=== PATIENT | male | born 1955 | race Caucasian/White ===

== ENCOUNTER 2023-11-05 08:03 | Outpatient (REF) | payer MEDICARE, OTHER, SELFPAY | END 2023-11-05 08:04 | disposition home or self-care (01) | LOC: HO.BBR 08:03 | PROVIDERS: Visit Provider Internal Medicine | DX: Z13.89 Encounter for screening for other disorder (principal) ==

== ENCOUNTER 2023-12-13 08:10 | Outpatient (REF) | payer MEDICARE, OTHER, SELFPAY | END 2023-12-13 08:11 | disposition home or self-care (01) | LOC: HO.BBR 08:10 | PROVIDERS: Visit Provider Internal Medicine | DX: Z13.89 Encounter for screening for other disorder (principal) ==

== ENCOUNTER 2023-12-24 11:08 | Outpatient (REF) | payer MEDICARE, OTHER, SELFPAY | END 2023-12-24 11:09 | disposition home or self-care (01) | LOC: HO.BBR 11:08 | PROVIDERS: Visit Provider Internal Medicine | DX: Z13.89 Encounter for screening for other disorder (principal) ==

== ENCOUNTER 2024-01-28 08:52 | Outpatient (REF) | payer MEDICARE, OTHER, SELFPAY | END 2024-01-28 08:53 | disposition home or self-care (01) | LOC: HO.BBR 08:52 | PROVIDERS: Visit Provider Internal Medicine | DX: Z13.89 Encounter for screening for other disorder (principal) ==

== ENCOUNTER 2024-03-03 08:00 | Outpatient (REF) | payer MEDICARE, OTHER, SELFPAY ==
--- OUTSIDE RECORDS SUMMARY | 2024-03-03 08:02 | XMS_ITS ---
Author Name [facility] Address [address] [place] [address] Care Team Providers Care Vp Project Name Role Phone SHAMIR MARTE Primary Care Provider Micheline espinal Selected Encounter This section includes the information on record at [place] for the Encounter. Date/Time Encounter Type Encounter Description Reason Pro vider Source Dec 24, 2023 12:00 AM Outpatient Encounter EVENT (HISTORICAL) IHE Encounter Template Text not used by [place] Plan of Treatment: Future Appointments (+ 6 months) and Future Tests (+/- 45 days) The Plan of Treatment section includes future care activities for the patient from all [place] treatmentfacilities. This section includes future appointments and future orders which are active, pending or scheduled. Active, Pending, and Scheduled Orders This section includes a listing of several types of active, pending, and scheduled orders, including clinic medications orders, diagnostic test orders, procedure orders and consult orders; where the start date of the order is 45 days before the date of the Encounter or 45 days after the date of theEncounter. The data comes from all [place] treatment facilities. Test Date/Time Test Type Test Details Facility Name Jan 11, 2024 12:00 AM Laboratory - Chemi stry Order OCCULT BLOOD FIT X1 SCREEN (MFP ONLY) [facility] Encounter Notes: All associated encounter notes This section contains the clinical notes associated to the Encounter. Date/Time Encounter Note(s) Provider Source Dec 24, 2023 12:00 AM NONVA DIAGNOSTIC Guadalupe LUNA REPORT: LOCAL TITLE: NON-VA DIAGNOSTICS STANDARD TITLE: NONVA DIAGNOSTIC STUDY REPORT DATE OF NOTE: DEC 24, 2023 ENTRY DATE: JAN 17, 2024@10:23:34 AUTHOR: KAUR ANDRES EXP COSIGNER: URGENCY: STATUS: COMPLETED VistA Imaging - Scanned Document SCANNED DOCUMENT SIGNATURE NOT REQUIRED Electronically Filed: 01/17/2024 by: KAUR CALLAHAN [facility]L [facility]
--- OUTSIDE RECORDS SUMMARY | 2024-03-03 08:02 | XMS_ITS ---
Author Name [facility] Organization Unknown History of Medication Use Medication Directions Dispensed Refills Start Date End Date Stat aspirin EC 81 MG tablet Take 1 tablet (81 mg total) by mouth daily. 10/06/2023 aborted omeprazole (PriLOSEC) 20 MG capsule Take 1 capsule (20 mg total) by mouth daily. as directed 10/06/2023 active atorvastatin (LIPITOR) tablet 20 mg Take 1 tablet (20 mg total) by mouth daily. 10/06/2023 active hydroCHLOROthiazide (HYDRODIURIL) tablet 12.5 mg TAKE ONE TABLET BY MOUTH EVERY DAY 10/06/2023 active losartan (COZAAR) tablet 50 mg TAKE ONE TABLET BY MOUTH EVERY DAY 10/06/2023 aborted losartan (COZAAR) tablet 50 mg Take 1 tablet (50 mg total) by mouth daily. 10/06/2023 active Problems Problem Status Onset Date Problem Type Date of Resolution Source Essential hypertension active 2017-05-25 ProblemAct [facility] Bilateral leg edema active 2017-06-30 ProblemAct [facility] VOGEL (dyspnea on exertion) active 2017-05-25 ProblemAct [facility] Elevated coronary artery calcium score active EncounterDiagnosisAct [facility]THNEM[facility] DE (obstructive sleep apnea) active 2017-05-25 ProblemAct [facility] Snoring active 2017-05-25 ProblemAct [facility] Moderate mixed hyperlipidemia not requiring statin therapy active EncounterDiagnosisAct CTTHNE MG Class 2 obesity due to excess calories without serious comorbidity with body mass index (BMI) of 37.0 to 37.9 in adult active 2017-06-30 ProblemAct [facility]
--- OUTSIDE RECORDS SUMMARY | 2024-03-03 08:02 | XMS_ITS | Continuity of Care Document ---
Author Name [facility] Organization [facility] Care Team Providers Care Service Manager Name Role Phone [facility] Unavailable Unavailable Problems Combined list of problems from Department of [facility] and Veterans Affairs facilities. It does not include entries that were removed or entered in error. Problem Status Onset Date Problem Type Date of Resolution Comments Source Anxiety Active Condition [place] Atherosclerosis of aorta Active Condition [place] Colonoscopy Screening Active Condition [place] Depression Active Condition [place] Gastroesophageal reflux disease [facility] Active Condition [facility] IELD Hypertension Active Condition [facility] Insomnia Active Condition [place] Obesity Active Condition [place] Peyronie Disease Active Condition [place] Tobacco dependence, continuous Active Condition [place] Medications Combined list of outpatient medications from [facility] and [facility] facilities.Medications provided include 1) outpatient medications from the last 15 months, and 2) patient-reported medications. Medication Details Route Status Patient Instructions Prescription Expires Prescription Number Last Dispense Date Ordering Provider Order Date Order Qty Source AMOXICILLIN TRIHYDRATE 500MG CAP TAKE 4 CAPSULES BY MOUTH ONE TIME NEEDED ORAL ACTIVE JULIET MARTE SA 2022 IELD ASPIRIN 81MG TAB,EC TAKE ONE TABLET BY MOUTH ONCE DAILY ORAL ACTIVE JULIET MARTE SA 2022 IELD CLOPIDOGREL BISULFATE 75MG TAB TAKE ONE TABLET BY MOUTH ONCE DAILY ORAL ACTIVE JULIET MARTE SA 2022 IELD HYDROCHLORO THIAZIDE 12.5MG/LOSA RTAN POTASSIUM 50MG TAB TAKE ONE TABLET BY MOUTH ONCE DAILY ORAL ACTIVE JULIET MARTE SA 2022 IELD LORAZEPAM 1MG TAB TAKE ONE TABLET BY MOUTH AT BEDTIME NEEDED ORAL ACTIVE JULIET MARTE SA 2022 IELD OMEPRAZOLE 20MG CAP,EC TAKE 2 CAPSULES BY MOUTH EVERY MORNING 30 MINUTES BEFORE BREAKFAS T ORAL ACTIVE JULIET MARTE SA 2022 IELD Immunizations Combined list of available immunizations from the Department of Defense and Veterans Affairs facilities. Immunization Series Date Given Administered By Site Reaction Lot Number CVX Code Drug Metal Bonding Helper Status Comments Source INFLUENZA, UNSPECIFIED FORMULATION 2021 88 complet ed [place] [facility] [place] [facility] PNEUMOCOCCAL CONJUGATE PCV 13 2021 133 complet ed [place] [facility] [place] [facility] PNEUMOCOCCAL POLYSACCHARID E PPV23 2016 33 complet ed [place] [facility] [place] [facility] ZOSTER LIVE 2016 121 complet ed [place] [facility] [place] [facility] TDAP 2015 115 complet ed [facility] [place] [facility] Encounters Combined list of: 1) Encounters from Department of Veterans Affairs facilities going back up to thelast 18 months. 2) Encounters from the Department of Defense facilities going back up to 280 months. Location Location Details Encounter Type Encounter Number Reason For Visit Attending Provider ADM Date DC Date Status Disposition Source [facility] [place] [facility] Outpatient Encounter [id number] 10/15 [place] [facility] [facility] [facility] [place] [facility] Outpatient Encounter [id number] 12/23 [facility] [place] [facility] [facility] Social History Combined list of available smoking, tobacco, and other social history from Department of Defense and Veterans Affairs facilities. Social History Type Response Date Comment Sourc e Tobacco smoking status NHIS VA-TOBACCO USER EVERY DAY 06/0 11/2022 [place] History of tobacco use [place]-TOBACCO DOESNT USE WI 30 MIN WAKEUP 08/28/2022 [place]
== END 2024-03-03 08:01 | disposition home or self-care (01) ==
LOC: HO.BBR 08:00
PROVIDERS: Visit Provider Internal Medicine
DX: Z13.89 Encounter for screening for other disorder (principal)

== ENCOUNTER 2024-04-28 08:11 | Outpatient (REF) | payer MEDICARE, OTHER, SELFPAY ==
--- OUTSIDE RECORDS SUMMARY | 2024-04-28 08:21 | XMS_ITS | Clinical Summary ---
Author Organization [facility] Address [address] [place] [address] Phone Care Team Providers Care Launch Commander [employer] Name Role Phone Braulio Bailey MD Primary Care Provider [phone] Allergies No known active allergies Medications Medication Sig Dispensed Refills Start Date End Date Status atorvastatin (LIPITOR) 20 mg tablet Take 1 tablet (20 mg total) by mouth daily. 10/04/2023 Active hydroCHLOROthiazide 12.5 mg tablet TAKE ONE TABLET BY MOUTH EVERY DAY 10/19/2023 Active losartan (COZAAR) 50 mg tablet Take 1 tablet (50 mg total) by mouth daily. 10/04/2023 Active omeprazole (PriLOSEC) [address] capsule Take 1 capsule (20 mg total) by mouth daily. as directed 08/26/2020 Active Active Problems Problem Noted Date Diagnosed Date Hereditary hemochromatosis 11/03/2023 Bilateral leg edema 06/30/2017 Class 2 obesity due to exces s calories without serious comorbidity with body mass index (BMI) of 37.0 to 37.9 in adult 06/30/2017 VOGEL (dyspnea on exertion) 05/25/2017 Essential hypertension 05/25/2017 DE (obstructive sleep apnea) 05/25/2017 Snoring 05/25/2017 Encounters Date Type Department Care Team Description 03/06/2024 9:00 AM EST Office Visit [facility] Hematology Oncology [address] [place] [address] Chloe Weaver PA Hereditary hemochromatosis (CMS/HCC) (Primary Dx); Former smoker from Last 3 Months Surgical History Surgery Date Site/Laterality Comments TOTAL KNEE ARTHROPLASTY 2008, 2010 Bilateral PROCEDURE:REPLACEMENT TOTAL KNEE Medical History Medical History Date Comments Hypertension DX:Hypertension Hyperlipidemia DX:Hyperlipidemi a Social History Tobacco Use Types Packs/Day Years Used Date Smoking Tobacco: Former Smokeless Tobacco: Never Tobacco Cessation:Counseling Given: Not Answered Sex and Gender Information Value Date Recorded Sex Assigned at Not on file Gender Identity Not on file Sexual Orientation Not on file Job Start Date Occupation Industry Not on file Not on file Not on file Obstetrics History Last Filed Vital Signs Vital Sign Reading Time Taken Comments Blood Pressure 131/70 03/06/2024 9:12 AM EST Pulse 67 03/06/2024 9:12 AM EST Temperature 37.1 ??C (98.7 ??F) 03/06/2024 9:12 AM ES T Respiratory Rate - - Oxygen Saturation 97% 03/06/2024 9:12 AM EST Inhaled Oxygen Concentration - - Weight 108 kg (237 lb) 03/06/2024 9:12 AM EST Height 179.1 cm (5' 10.5 ) 10/04/2023 8:59 AM ED T Body Mass Index 33.53 10/04/2023 8:59 AM EDT Plan of Treatment Upcoming Encounters Date Type Department Care Team (Late st Contact Info) Description 08/28/2024 9:15 AM EDT Office Visit [facility] Hematology Oncology [address] [place] [phone] Yarely-Efren Wallace MD [address] [place] [phone] 10/04/2024 9:00 AM EDT Office Visit [facility] [address] [place] [address] [address] [place] [address] Terry Walton MD [address] [address] Health Maintenance Due Date Last Done Comments Hepatitis A Vaccines (1 of 2 - Risk 2-dose series) 1975 Zoster Vaccines (2 of 3) 08/03/2016 06/08/2016 Abdominal Aortic Aneurysm (AAA) Screen 02/26/2022 Cholesterol Screening (Lipid Panel) 02/26/2022 Colorectal Cancer Screening: Colonoscopy 02/26/2022 Depression Screening 02/26/2022 Falls Risk Assessment 02/26/2022 Hepatitis C Screening 02/26/2022 Social Influencers of Health Screening 02/26/2022 Hypertension/CHF/CAD Annual BMP Blood Test 02/28/2022 Medicare Annual Wellness Visit 07/10/2023 07/09/2022 DTaP,Tdap,and Td Vaccines (3 - Td or Tdap) 09/21/2032 09/21/2022, 03/22/2015 Pneumococcal Vaccine: 65+ Years Completed 08/27/2022, 07/08/2021, 12/09/2016, Additional history exists RSV Immunization Patients 60+ Years Old Completed 12/03/2022 COVID-19 Vaccine Completed 12/12/2023, , 06/21/2020 Influenza Vaccine Completed 12/12/2023, , 01/12/2022, Additional history exists HIB Vaccines Aged Out No longer eligi ble based on patient's age to complete this topic HPV Vaccines Aged Out No longer eligi ble based on patient's age to complete this topic Hepatitis B Vaccines Aged Out No long er eligible based on patient's age to complete this topic IPV Vaccines Aged Out No longer eligi ble based on patient's age to complete this topic MMR Vaccines Aged Out No longer eligi ble based on patient's age to complete this topic Meningococcal ACWY Vaccine Aged Out N o longer eligible based on patient's age to complete this topic RSV Immunization Patients Under 20 months Aged Out No longer eligible based on patient's age to complete this topic Varicella Vaccines Aged Out No longer eligible based on patient's age to complete this topic Care Teams Launch Commander [employer] Relationship Specialty Start Date End Date Braulio Bailey MD [address] [place], [place] PCP - General Knitting Machine Operator Helper 05/25/17
--- OUTSIDE RECORDS SUMMARY | 2024-04-28 08:21 | XMS_ITS | Continuity of Care Document ---
Author Name [facility] Organization [facility] Care Team Providers Care Rn Neurology Name Role Phone [facility] Unavailable Unavailable Problems Combined list of problems from Department of [facility] and Veterans Affairs facilities. It does not include entries that were removed or entered in error. Problem Status Onset Date Problem Type Date of Resolution Comments Source Anxiety Active Condition [place] Atherosclerosis of aorta Active Condition [place] Colonoscopy Screening Active Condition [place] Depression Active Condition [place] Gastroesophageal reflux disease [facility] Hyperlipidemia Active Condition [facility] IELD Hypertension Active Condition [place] [facility] Insomnia Active Condition [place] Obesity Active Condition [place] Peyronie Disease Active Condition [place] Tobacco dependence, continuous Active Condition [facility] Medications Combined list of outpatient medications from [facility] and [facility] facilities.Medications provided include 1) outpatient medications from [...] Site Reaction Lot Number CVX Code Drug Family Support Coordinator Status Comments Source INFLUENZA, UNSPECIFIED FORMULATION 2021 88 complet ed [place] [facility] [place] [facility] PNEUMOCOCCAL CONJUGATE PCV 13 2021 133 complet ed [place] [facility] [place] [facility] PNEUMOCOCCAL POLYSACCHARID E PPV23 2016 33 complet ed [facility] [place] [facility] ZOSTER LIVE 2016 121 complet ed [facility] [place] [facility] TDAP 2015 115 complet [facility] [place] [facility] [facility] Encounters Combined list of: 1) Encounters from Department of Veterans Affairs facilities going backup to the last 18 months, not all VA inpatient encounters are included; 2) Encounters from the Department of Defense facilities going backup to 280 months. Location Location Details Encounter Type Encounter Number Reason For Visit Attending Provider ADM Date DC Date Status Disposition [facility] [place] [facility] Outpatient Encounter [id number] 10/15 [place] [facility] [place] [facility] [facility] Encounter [id number] [facility] Social History Combined list of available smoking, tobacco, and other social history from Department of Defense and Veterans Affairs facilities. Social History Type Response Date Comment Sourc e Tobacco smoking status NHIS VA-TOBACCO USER EVERY DAY 06/0 11/2022 [place] History of tobacco use [place]-TOBACCO DOESNT USE WI 30 MIN WAKEUP 08/28/2022 [place]
--- OUTSIDE RECORDS SUMMARY | 2024-04-28 08:22 | XMS_ITS | Clinical Summary ---
Author Organization [facility] Address [address] [place] [address] Care Team Providers Care Featheredger And Reducer Machine Name Role Phone Braulio Bailey MD Primary Care Provider [phone] Allergies No known active allergies Medications Medication Sig Dispensed Refills Start Date End Date Status omeprazole (PriLOSEC) 20 MG capsule Take 1 capsule (20 mg total) by mouth daily. as directed 0 08/26/2020 Active losartan (COZAAR) tablet 50 mgIndications:Primary hypertension,Moderate mixed hyperlipidemia not requiring statin therapy,Elevated coronary artery calcium score Take 1 tablet (50 mg total) by mouth daily. 90 tablet 3 10/04/2023 Active atorvastatin (LIPITOR) tablet 20 mgIndications:Primary hypertension,Moderate mixed hyperlipidemia not requiring statin therapy,Elevated coronary artery calcium score Take 1 tablet (20 mg total) by mouth daily. 90 tablet 3 10/04/2023 Active LORazepam (ATIVAN) 1 MG tablet Take 1 tablet (1 mg total) by mouth every night at bedtime as needed. 0 Active aspirin 81 MG chewable tablet Chew 1 tablet (81 mg total) by mouth daily. 0 Active hydroCHLOROthiazide (HYDRODIURIL) tablet 12.5 mg TAKE ONE TABLET BY MOUTH EVERY DAY 90 tablet 1 10/19/2023 Active Active Problems Problem Noted Date Diagnosed Date Hereditary hemochromatosis 11/03/2023 Bilateral leg edema 06/30/2017 Class 2 obesity due to exces s calories without serious comorbidity with body mass index (BMI) of 37.0 to 37.9 in adult 06/30/2017 Essential hypertension 05/25/2017 VOGEL (dyspnea on exertion) 05/25/2017 DE (obstructive sleep apnea) 05/25/2017 Snoring 05/25/2017 Social History Tobacco Use Types Packs/Day Years Used Date Smoking Tobacco: Former Cigarettes Passive Smoke Exposure: Past Smokeless Tobacco: Never Sex and Gender Information Value Date Recorded Sex Assigned at Male 09/09/2023 5:07 PM EDT Gender Identity Not on file Sexual Orientation Not on file Job Start Date Occupation Industry Not on file Not on file Not on file Last Filed Vital Signs Vital Sign Reading Time Taken Comments Blood Pressure 140/69 11/03/2023 8:13 AM EDT Pulse 69 11/03/2023 8:13 AM EDT Temperature 37.2 ??C (98.9 ??F) 11/03/2023 8:13 AM ED T Respiratory Rate - - Oxygen Saturation 96% 11/03/2023 8:13 AM EDT Inhaled Oxygen Concentration - - Weight 117 kg (258 lb) 11/03/2023 8:13 AM EDT Height 179.1 cm (5' 10.5 ) 10/04/2023 8:59 AM ED T Body Mass Index 36.5 10/04/2023 8:59 AM EDT Plan of Treatment Health Maintenance Due Date Last Done Comments Hepatitis C Screening 1956 COVID-19 Vaccine (#1) 1956 Depression Screening 1968 BMI Counseling 1974 Preventative Health Evaluation 1974 Tobacco Cessation Counseling 1974 Colon Cancer Screening (Colonoscopy) 2001 Shingrix-Zoster Vaccine (1 o f 2) 2006 Abdominal Aortic Aneurysm (AAA) Screening 2021 Fall Risk Assessment 2021 Influenza Vaccine (#1) 2023 05/03/2015 DTap / Tdap / Td (2 - Td or Tdap) 03/22/2025 03/22/2015 Pneumococcal Vaccine (3 of 3 - PPSV23 or PCV20) 07/08/2026 07/08/2021, 12/09/2016, 05/03/2015 RSV Adult > 60+ Yrs or (1 - 1-dose 75+ series) 2031 Hepatitis B Vaccines Aged Out No long er eligible based on patient's age to complete this topic RSV Ped < 20 months Aged Out No longe r eligible based on patient's age to complete this topic Care Teams Featheredger And Reducer Machine Relationship Specialty Start Date End Date Braulio Bailey MD [facility] IFTIKHAR JEFFRIES [address] [address] PCP - General Head Girls Golf Coach 05/25/17
== END 2024-04-28 08:12 | disposition home or self-care (01) ==
LOC: HO.BBR 08:11
PROVIDERS: Visit Provider Internal Medicine
DX: Z13.89 Encounter for screening for other disorder (principal)

== ENCOUNTER 2024-06-30 10:40 | Outpatient (REF) | payer MEDICARE, OTHER, SELFPAY ==
--- OUTSIDE RECORDS SUMMARY | 2024-06-30 11:34 | XMS_ITS | Continuity of Care Document ---
Author Name [facility] Organization [facility] Care Team Providers Care Ticketer Name Role Phone [facility] Unavailable Unavailable Problems Combined list of problems from Department of [facility] and Veterans Affairs facilities. It does not include entries that were removed or entered in error. Problem Status Onset Date Problem Type Date of Resolution Comments Source Anxiety Active Condition [place] Atherosclerosis of aorta Active Condition [place] Colonoscopy Screening Active Condition [place] Depression Active Condition [place] Gastroesophageal reflux disease [facility]lipidemia Active Condition [facility] IELD Hypertension Active Condition [place] [facility] Insomnia Active Condition [place] Obesity Active Condition [place] Peyronie Disease Active Condition [place] Tobacco dependence, continuous Active Condition [place] Medications Combined list of outpatient medications from [facility] and [facility] facilities.Medications provided [...] Site Reaction Lot Number CVX Code Drug Termite Exterminator Helper Status Comments Source INFLUENZA, UNSPECIFIED FORMULATION 2021 88 complet ed HISTORICA L INFORMATI ON - SOURCE UNSPECIFI ED, [place] [facility] [place] [facility] PNEUMOCOCCAL CONJUGATE PCV 13 2021 133 complet ed HISTORICA L INFORMATI ON - SOURCE UNSPECIFI ED, [place] [facility] [place] [facility] PNEUMOCOCCAL POLYSACCHARID E PPV23 2016 33 complet ed HISTORICA L INFORMATI ON - SOURCE UNSPECIFI ED, [place] [facility] [place] [facility] ZOSTER LIVE 2016 121 complet ed HISTORICA L INFORMATI ON - SOURCE UNSPECIFI ED, [place] [facility] [facility] TDAP 2015 115 complet ed HISTORICA L INFORMATI ON - SOURCE UNSPECIFI ED, [place] [facility] [facility] Encounters Combined list of: 1) Encounters from Department of Veterans Affairs facilities going backup to the last 18 months, not all VA inpatient encounters are included; 2) Encounters from the Department of Defense facilities going backup to 280 months. Location Location Details Encounter Type Encounter Number Reason For Visit Attending Provider ADM Date DC Date Status Disposition Source [place] [facility] [place] [facility] Outpatient Encounter [id number] 12/23 [place] [facility] [place] [facility] Social History Combined list of available smoking, tobacco, and other social history from Department of Defense and Veterans Affairs facilities. Social History Type Response Date Comment Sourc e Tobacco smoking status NHIS VA-TOBACCO USER EVERY DAY 06/0 11/2022 [place] History of tobacco use VA-TOBACCO DOESNT USE WI 30 MIN WAKEUP 08/28/2022 [place]
--- OUTSIDE RECORDS SUMMARY | 2024-06-30 11:34 | XMS_ITS | Clinical Summary ---
Author Organization [facility] Address [address] [place] [address] Phone Care Team Providers Care Hat Mender Name Role Phone Braulio Bailey MD Primary Care Provider [phone] Allergies No known active allergies Medications atorvastatin (LIPITOR) 20 mg tablet Take 1 tablet (20 mg total) by mouth daily. 4 Active losartan (COZAAR) 50 mg tablet Take 1 tablet (50 mg total) by mouth daily. 4 Active omeprazole (PriLOSEC) [address] Ly ons:Gastroesoph ageal reflux disease without esophagitis Take 1 capsule (20 mg total) by mouth 2 (two) times a day. Do not crush or chew. 180 each 5 025 Active hydroCHLOROthia zide 12.5 mg tablet TAKE ONE TABLET BY MOUTH EVERY DAY 90 tablet 1 5 Active hydroCHLOROthia zide 12.5 mg tablet TAKE ONE TABLET BY MOUTH EVERY DAY 4 025 Discontinued Active Problems Problem Noted Date Diagnosed Date Hereditary hemochromatosis (CMS/HCC V24) 024 Bilateral leg edema 06/30/2017 Class 2 obesity due to exces s calories without serious comorbidity with body mass index (BMI) of 37.0 to 37.9 in adult 06/30/2017 VOGEL (dyspnea on exertion) 05/25/2017 Essential hypertension 05/25/2017 DE (obstructive sleep apnea) 05/25/2017 Snoring 05/25/2017 Surgical History Surgery Date Site/Laterality Comments TOTAL KNEE ARTHROPLASTY 2008, 2010 Bilateral PROCEDURE:REPLACEMENT TOTAL KNEE Medical History Medical History Date Comments Hypertension DX:Hypertension Hyperlipidemia DX:Hyperlipidemi a Social History Tobacco Use Types Packs/Day Years Used Date Smoking Tobacco: Former Smokeless Tobacco: Never Tobacco Cessation:Counseling Given: Not Answered Sex and Gender Information Value Date Recorded Sex Assigned at Not on file Legal Sex Male 3:36 PM EST Gender Identity Not on file Sexual Orientation Not on file Obstetrics History Last Filed [...] Description 08/28/2024 9:15 AM EDT Office Visit [facility] Hematology Oncology [address] [place] [phone] Efren Samaniego MD [address] [place] [phone] 10/04/2024 9:00 AM EDT Office Visit [facility] Cardiology - [place] [address] [phone] Terry Walton MD [address] [address] Health Maintenance Due Date Last Done Comments Zoster Vaccines (2 of 3) 08/03/2016 06/08/2016 [...] or Tdap) 09/21/2032 09/21/2022, 03/22/2015 Pneumococcal Vaccine: 50+ Years Completed 08/27/2022, 07/08/2021, 12/09/2016, Additional history exists RSV Immunization Adult Patients Completed 12/03/2022 COVID-19 Vaccine Completed 12/12/2023, , 06/21/2020 Influenza Vaccine Completed 12/12/2023, , 01/12/2022, Additional history exists HIB Vaccines Aged Out No longer eligi ble based on patient's age to complete this topic HPV Vaccines Aged Out No longer eligi ble based on patient's age to complete this topic Hepatitis A Vaccines Aged Out No long er eligible [...] patient's age to complete this topic Meningococcal B Vaccine Aged Out No l onger eligible based on patient's age to complete this topic RSV Immunization Patients Under 20 months Aged Out No longer eligible based on patient's age to complete this topic Varicella Vaccines Aged Out No longer eligible based on patient's age to complete this topic Insurance MEDICARE [employer] Care Teams Hat Mender Relationship Specialty Start Date End Date Braulio Bailey MD [address] PCP - General Autocad Technician 05/25/17
--- OUTSIDE RECORDS SUMMARY | 2024-06-30 11:34 | XMS_ITS | Clinical Summary ---
Author Organization [facility] Address [address] [place] [address] Care Team Providers Care Country Sales Manager Name Role Phone Braulio Bailey MD Primary Care Provider [phone] Allergies No known active allergies Medications Medication [...] age to complete this topic Care Teams Country Sales Manager Relationship Specialty Start Date End Date Braulio Bailey MD [address] [address] PCP - General Commercial Lending Assistant 05/25/17
== END 2024-06-30 10:41 | disposition home or self-care (01) ==
LOC: HO.BBR 10:40
PROVIDERS: Visit Provider Internal Medicine
DX: Z13.89 Encounter for screening for other disorder (principal)

== ENCOUNTER 2024-07-28 08:15 | Outpatient (REF) | payer MEDICARE, OTHER, SELFPAY ==
--- OUTSIDE RECORDS SUMMARY | 2024-07-28 08:20 | XMS_ITS | Clinical Summary ---
Author Organization [facility] Address [address] [place] [address] Care Team Providers Care Quality Control Representative Name Role Phone Braulio Bailey MD Primary Care Provider [phone] Allergies No known active allergies Medications Medication [...] age to complete this topic Care Teams Quality Control Representative Relationship Specialty Start Date End Date Braulio Bailey MD [address] [address] PCP - General Lithographic Platemaker 05/25/17
--- OUTSIDE RECORDS SUMMARY | 2024-07-28 08:20 | XMS_ITS | Clinical Summary ---
Author Organization [facility] Address [address] [place] [address] Phone Care Team Providers Care Cafe Attendant Name Role Phone Braulio Bailey MD Primary Care Provider [phone] Allergies No known active allergies Medications atorvastatin (LIPITOR) 20 mg tablet Take 1 tablet (20 mg total) by mouth daily. 10/04/2023 Active losartan (COZAAR) 50 mg tablet Take 1 tablet (50 mg total) by mouth daily. 10/04/2023 Active omeprazole (PriLOSEC) [address] capsuleIndicatio ns:Gastroesophag eal reflux disease without esophagitis Take 1 capsule (20 mg total) by mouth 2 (two) times a day. Do not crush or chew. 180 each 05/11/2024 08/10/19 25 Active hydroCHLOROthiaz tristin 12.5 mg tablet TAKE ONE TABLET BY MOUTH EVERY DAY 90 tablet 1 06/13/2024 Active Active Problems Problem Noted Date Diagnosed [...] [facility] [address] [place] [phone] Yarely-Efren Wallace MD [address] [place] [phone] 10/04/2024 9:00 AM EDT Office Visit [facility] Cardiology - [place] [address] [phone] Terry Walton MD [address] [address] Health Maintenance Due Date Last Done Comments Zoster Vaccines (2 of 3) 08/03/2016 06/08/2016 Abdominal Aortic Aneurysm (AAA) Screen 02/26/2022 Cholesterol Screening (Lipid Panel) 02/26/2022 Colorectal Cancer Screening: Colonoscopy 02/26/2022 Depression Screening 02/26/2022 Falls Risk Assessment 02/26/2022 Hepatitis C Screening 02/26/2022 Social Influencers of Health Screening 02/26/2022 Hypertension/CHF/CAD Annual BMP Blood Test 02/28/2022 Medicare Annual Wellness Visit 07/10/2023 07/09/2022 COVID-19 Vaccine ( season) 2024 12/12/2023, 07/14/2020, 06/21/2020 DTaP,Tdap,and Td Vaccines (3 - Td or Tdap) 09/21/2032 09/21/2022, 03/22/2015 Pneumococcal Vaccine: 50+ Years Completed 08/27/2022, 07/08/2021, 12/09/2016, Additional history exists RSV Immunization Adult Patients Completed 12/03/2022 Influenza Vaccine Completed 12/12/2023, , 01/12/2022, Additional [...] age to complete this topic Insurance [facility] Care Teams Cafe Attendant Relationship Specialty Start Date End Date Braulio Bailey MD [address] PCP - General Security Intelligence Analyst 05/25/17
== END 2024-07-28 08:16 | disposition home or self-care (01) ==
LOC: HO.BBR 08:15
PROVIDERS: Visit Provider Internal Medicine
DX: Z13.89 Encounter for screening for other disorder (principal)